=== PATIENT | female | born 1970 | race Caucasian/White ===

== ENCOUNTER 2017-04-16 06:21 | Inpatient (IN) | payer BC, OTHER ==
[2017-04-16] VITALS (7 sets, daily range): BP systolic 98–117; BP diastolic 56–70; PULSE 57–82; TEMP 36.3–36.8; O2SAT 91–100; Ht 162.6 cm; Wt 71.7 kg
[~2017-04-16] VITALS: Ht 162.6 cm; Wt 71.7 kg
--- NOTE | 2017-04-16 06:47 | EMERGENCY ROOM VISIT NOTE ---
History Report prepared by Artem: Debora Pavon Under the Supervision of: Dr. Darryl Duncan M.D. First contact with patient: 06:36 Chief Complaint: ABDOMINAL PAIN Stated Complaint: ABD PAIN History of Present Illness The patient is a 46 year old female who presents to the Emergency Room with complaints of waxing and waning abdominal pain that began around 0430 this morning. She currently rates her discomfort as a 9/10 in severity, describing her discomfort as a cramping pain. The patient reports that last evening she went to a picnic and ate salad, fruit, vegetables and bread. She additionally notes that she ate left over pizza last evening, but states that her significant other additionally ate the pizza. The patient states that last evening she developed a headache and took Advil and went to bed. She states that she woke up at 0430 with the pain and denies ever having any pain like this in the past. The patient states that she had vomited this morning. The patient states that her last bowel movement was yesterday, noting that it was diarrhea in consistency. She reports normal urination. The patient denies any active medical problems. The patient reports that she still has normal menstrual cycles, stating that she is currently on her period. Source of History: patient Onset: 0430 this morning Position: abdomen Symptom Intensity: 9/10 Quality: cramping Timing: waxes/wanes Associated Symptoms: + headache, + vomiting, + diarrhea, No urinary symptoms Review of Systems All systems have been listed, reviewed, and are negative other than those previously mentioned. Please see Additional Medical History Sheet. Past Medical & Surgical Surgical Problems: (1) H/O foot surgery Family History Patient reports no known family medical history. Social History Smoking Status: Never Smoker Marital Status: Housing Status: lives with significant other Occupation Status: employed Current/Historical Medications No Active Prescriptions or Reported Meds Allergies Coded Allergies: No Known Allergies (Verified , 12/22/02) Physical Exam Vital Signs Date Time Temp Pulse Resp B/P (MAP) Pulse Ox O2 Delivery O2 Flow Rate FiO2 04/16/17 14:57 59 18 100/54 97 04/16/17 14:17 91/42 04/16/17 14:14 51 18 86/45 100 Room Air 04/16/17 12:41 65 18 101/53 98 Room Air 04/16/17 11:35 59 18 118/59 98 Room Air 04/16/17 09:37 54 18 108/60 96 Room Air 04/16/17 07:39 57 18 104/59 100 Room Air 04/16/17 06:26 36.4 73 16 112/65 99 Room Air Physical Exam GENERAL: Patient awake, alert, oriented x 3. Patient follows commands. Patient appears to be in severe pain. Patient is adequately hydrated and well- nourished. SKIN: No erythema, pallor, cyanosis or rash HEENT: Normal head, pupils equal, reactive to light and accommodation. Neck: Without adenopathy, no neck vein distention. LUNGS: Clear to auscultation. No wheezes, no rales, no rhonchi. HEART: No murmurs. No gallops. No rubs ABDOMEN: Diffuse tenderness throughout abdomen. No rebound or guarding. EXTREMITIES: No signs of trauma or infection. NEUROLOGIC: Cranial nerves II-XII within normal limits. No gross motor sensory function deficits. Medical Decision & Procedures ER Provider Diagnostic Interpretation: CT results are interpretations by the radiologist and per my review. CT ABD/PELVIS IV AND ORAL CONT CLINICAL HISTORY: Mid abdominal pain and vomiting COMPARISON STUDY: None. TECHNIQUE: Following the IV administration of 118 mL of Optiray-320, CT scan of the abdomen and pelvis was performed from the lung bases to the proximal femurs. Images are reviewed in the axial, sagittal, and coronal planes. IV contrast was administered without complication. The patient was brought back for delayed imaging. CT DOSE: 0.00 mGy.cm FINDINGS: Lower chest: There are dependent airspace opacities, likely atelectatic Liver: There is a 4 mm hypodensity within the right hepatic dome, likely representing a cyst. Gallbladder: Unremarkable. Spleen: Normal in size and attenuation. Pancreas: Unremarkable. Adrenal glands: Unremarkable. Kidneys: There is symmetric renal cortical enhancement. The kidneys are normal in size without hydronephrosis. Bowel: There is a high-grade distal small bowel obstruction with a right lower quadrant transition zone. There is edema within the adjacent mesentery. A closed loop obstruction cannot be excluded with certainty. Surgical consultation is recommended. No pneumatosis is visualized. No portal venous gas is visualized. The appendix appears normal. There is no acute diverticulitis. Peritoneum: There is trace free pelvic fluid. No free air is visualized. Vasculature: The abdominal aorta is normal in course and caliber. Adenopathy: None. Pelvic viscera: The bladder, and pelvic viscera are unremarkable. Skeletal structures: No destructive osseous lesions are seen. IMPRESSION: 1. High-grade distal small bowel obstruction with a right lower quadrant transition. There is associated mesenteric edema. Surgical consultation is recommended. Electronically signed by: Donn Walters M.D. 04/16/2017 2:17 PM Dictated Date/Time: 04/16/2017 2:08 PM Laboratory Results 04/16/17 06:38 Red Blood Count 4.07, Mean Corpuscular Volume 99.0, Mean Corpuscular Hemoglobin 33.2, Mean Corpuscular Hemoglobin Concent 33.5, Mean Platelet Volume 10.7, Neutrophils (%) (Auto) 58.3, Lymphocytes (%) (Auto) 33.2, Monocytes (%) (Auto) 5.0, Eosinophils (%) (Auto) 3.0, Basophils (%) (Auto) 0.5, Neutrophils # (Auto) 2.36, Lymphocytes # (Auto) 1.34, Monocytes # (Auto) 0.20, Eosinophils # (Auto) 0.12, Basophils # (Auto) 0.02 04/16/17 06:38 Test 04/16/17 06:38 04/16/17 08:30 White Blood Count 4.04 K/uL (4.8-10.8) Red Blood Count 4.07 M/uL (4.2-5.4) Hemoglobin 13.5 g/dL (12.0-16.0) Hematocrit 40.3 % (37-47) Mean Corpuscular Volume 99.0 fL (80-100) Mean Corpuscular Hemoglobin 33.2 pg (25-34) Mean Corpuscular Hemoglobin Concent 33.5 g/dl (32-36) Platelet Count 212 K/uL (130-400) Mean Platelet Volume 10.7 fL (7.4-10.4) Neutrophils (%) (Auto) 58.3 % Lymphocytes (%) (Auto) 33.2 % Monocytes (%) (Auto) 5.0 % Eosinophils (%) (Auto) 3.0 % Basophils (%) (Auto) 0.5 % Neutrophils # (Auto) 2.36 K/uL (1.4-6.5) Lymphocytes # (Auto) 1.34 K/uL (1.2-3.4) Monocytes # (Auto) 0.20 K/uL (0.11-0.59) Eosinophils # (Auto) 0.12 K/uL (0-0.5) Basophils # (Auto) 0.02 K/uL (0-0.2) RDW Standard Deviation 45.6 fL (36.4-46.3) RDW Coefficient of Variation 12.6 % (11.5-14.5) Immature Granulocyte % (Auto) 0.0 % Immature Granulocyte # (Auto) 0.00 K/uL (0.00-0.02) Anion Gap 8.0 mmol/L (3-11) Est Creatinine Clear Calc Drug Dose 79.4 ml/min Estimated GFR () 93.9 Estimated GFR (Non- 81.0 BUN/Creatinine Ratio 16.8 (10-20) Calcium Level 8.4 mg/dl (8.5-10.1) Total Bilirubin 0.4 mg/dl (0.2-1) Aspartate Amino Transf (AST/SGOT) 11 U/L (15-37) Alanine Aminotransferase (ALT/SGPT) 16 U/L (12-78) Alkaline Phosphatase 55 U/L (45-117) Total Protein 7.1 gm/dl (6.4-8.2) Albumin 3.8 gm/dl (3.4-5.0) Globulin 3.3 gm/dl (2.5-4.0) Albumin/Globulin Ratio 1.2 (0.9-2) Lipase 162 U/L (73-393) Urine Color YELLOW Urine Appearance CLEAR (CLEAR) Urine pH 5.5 (4.5-7.5) Urine Specific [place] 1.023 (1.000-1.030) Urine Protein NEG (NEG) Urine Glucose (UA) NEG (NEG) Urine Ketones NEG (NEG) Urine Occult Blood NEG (NEG) Urine Nitrite NEG (NEG) Urine Bilirubin NEG (NEG) Urine Urobilinogen NEG (NEG) Urine Leukocyte Esterase NEG (NEG) Urine Test NEG (NEG) Laboratory results as stated above per my review. Medications Administered Medications (Trade) Dose Ordered Sig/Elizabeth Route Start Time Stop Time Status Last Admin Dose Admin Morphine Sulfate (MoRPHine SULFATE INJ) 8 mg Q1H PRN IV 04/16/17 06:45 04/30/17 06:44 04/16/17 14:57 8 MG Ondansetron HCl (Zofran Inj) 4 mg Q1HWA PRN IV 04/16/17 06:45 05/16/17 06:44 04/16/17 13:53 4 MG Sodium Chloride 1,000 ml @ 1,000 mls/hr Q1H ONCE IV 04/16/17 13:00 04/16/17 13:59 DC 04/16/17 13:05 1,000 MLS/HR Sodium Chloride 1,000 ml @ 500 mls/hr Q2H STAT IV 04/16/17 14:33 04/16/17 16:32 04/16/17 15:00 500 MLS/HR ECG Indication: abdominal pain Rate (beats per minute): 67 Rhythm: normal sinus Findings: no acute ischemic change, no ectopy ED Course 0637: Past medical records reviewed. The patient was evaluated in room A10. A complete history and physical examination was performed. 0645: Ordered Zofran Inj 4 mg IV, Morphine Sulfate 8 mg IV. 0840: I reevaluated the patient and she is feeling much better. 1255: I reevaluated the patient and awaiting her CT results. 1300: Ordered Sodium Chloride 1000 ml @ 1000 mls/hr IV. 1428: I reevaluated the patient and she is resting comfortably. I discussed the exam findings with her and I discussed the treatment plan. She verbalized complete understanding and agreement. She will be evaluated for further treatment. 1433: Ordered Sodium Chloride 1000 ml @ 500 mls/hr IV. 1434: I discussed the patients case with Dr. Flaherty, General Surgery. He would like an NG tube placed and he will come evaluate the patient. Medical Decision Nurses notes reviewed. Medical history sheet reviewed. Differential diagnosis includes but is not limited to: appendicitis, Crohn's disease, diverticulitis, abdominal abscess, ovarian torsion, ovarian cyst. Medication Reconciliation: I attest that I have personally reviewed the patient' s current medication list. Blood pressure Screening: Patient was found to have normal blood pressure on screening and does not require follow up. Multiple labs, urinalysis, EKG and imaging were obtained. Final CT imaging diagnosis was delayed due to multiple follow-up CT films that were requested by radiology. High-grade small bowel obstruction was found. I discussed care with the patient. I also discussed care with Dr. Flaherty. An NG was inserted.. The patient was given IV fluids and multiple doses of IV morphine and Zofran. Consults Time Called: 1431 Consulting Physician: Dr. Flaherty, General Surgery Returned Call: 1431 I discussed the patients case with Dr. Flaherty, General Surgery. He would like an NG tube placed and he will come evaluate the patient. Impression Primary Impression: Small bowel obstruction Scribe Attestation The scribe's documentation has been prepared under my direction and personally reviewed by me in its entirety. I confirm that the note above accurately reflects all work, treatment, procedures, and medical decision making performed by me. Departure Information Dispostion Being Evaluated By Surgeon Prescriptions No Active Prescriptions or Reported Meds Referrals Ousmane Fish M.D.([facility]) (PCP)
[2017-04-16 06:50] LABS: BASO % 0.5 %; BASO ABS # 0.02 K/uL (0-0.2); COMPLETE YES; HEMATOCRIT 40.3 % (37-47); LYMPH % 33.2 %; LYMPH ABS # 1.34 K/uL (1.2-3.4); MEAN CORPUSCULAR HEMOGLOBIN 33.2 pg (25-34); MEAN CORPUSCULAR HGB CONC 33.5 g/dl (32-36); MEAN PLATELET VOLUME 10.7 fL (7.4-10.4); NEUT % 58.3 %; PLATELET COUNT 212 K/uL (130-400); RED BLOOD COUNT 4.07 M/uL (4.2-5.4); WHITE BLOOD COUNT 4.04 K/uL (4.8-10.8)
[2017-04-16] MEDS: MoRPHine SULFATE 10 MG/ML CARP/VIAL IV PRN ×4 (06:50→14:57)
[2017-04-16] MEDS: ONDANSETRON INJ 2 MG/ML 2 ML VIAL IV PRN ×3 (06:50→13:53)
[2017-04-16] MEDS ORDERED: OPTIRAY 320 IV PRN (07:00)
[2017-04-16 07:06] LABS: BUN/CREATININE RATIO 16.8 (10-20); CALCIUM 8.4 mg/dl (8.5-10.1); CREATININE 0.86 mg/dl (0.60-1.20); POTASSIUM 3.7 mmol/L (3.5-5.1)
[2017-04-16 07:09] LABS: ALB/GLOB RATIO 1.2 (0.9-2)
[2017-04-16 08:51] LABS: URINE APPEARANCE CLEAR (CLEAR); URINE BILIRUBIN NEG (NEG); URINE COLOR YELLOW; URINE NITRITE NEG (NEG); URINE PH 5.5 (4.5-7.5); URINE SPECIFIC GRAVITY 1.023 (1.000-1.030); UROBILINOGEN NEG (NEG); ZZUR CULT IF INDIC CLEAN CATCH NO
[2017-04-16 09:12] LABS: MANUAL MICROSCOPIC REQUIRED? NO; REVIEW REQ? NO
[2017-04-16] MEDS ORDERED: SODIUM CHLORIDE 0.9% 1000ML 1,000 ML IV ONE (13:00)
--- NOTE | 2017-04-16 14:18 | DIAGNOSTIC IMAGING REPORT ---
CT ABD/PELVIS IV AND ORAL CONT CLINICAL HISTORY: Mid abdominal pain and vomiting COMPARISON STUDY: None. TECHNIQUE: Following the IV administration of 118 mL of Optiray-320, CT scan of the abdomen and pelvis was performed from the lung bases to the proximal femurs. Images are reviewed in the axial, sagittal, and coronal planes. IV contrast was administered without complication. The patient was brought back for delayed imaging. CT DOSE: 0.00 mGy.cm FINDINGS: Lower chest: There are dependent airspace opacities, likely atelectatic Liver: There is a 4 mm hypodensity within the right hepatic dome, likely representing a cyst. Gallbladder: Unremarkable. Spleen: Normal in size and attenuation. Pancreas: Unremarkable. Adrenal glands: Unremarkable. Kidneys: There is symmetric renal cortical enhancement. The kidneys are normal in size without hydronephrosis. Bowel: There is a high-grade distal small bowel obstruction with a right lower quadrant transition zone. There is edema within the adjacent mesentery. A closed loop obstruction cannot be excluded with certainty. Surgical consultation is recommended. No pneumatosis is visualized. No portal venous gas is visualized. The appendix appears normal. There is no acute diverticulitis. Peritoneum: There is trace free pelvic fluid. No free air is visualized. Vasculature: The abdominal aorta is normal in course and caliber. Adenopathy: None. Pelvic viscera: The bladder, and pelvic viscera are unremarkable. Skeletal structures: No destructive osseous lesions are seen. IMPRESSION: 1. High-grade distal small bowel obstruction with a right lower quadrant transition. There is associated mesenteric edema. Surgical consultation is recommended. Electronically signed by: Donn Walters M.D. 04/16/2017 2:17 PM Dictated Date/Time: 04/16/2017 2:08 PM
[2017-04-16] MEDS ORDERED: SODIUM CHLORIDE 0.9% 1000ML 1,000 ML IV STA (14:33)
[2017-04-16] MEDS ORDERED: CEFAZOLIN IV 2,000 MG/60 ML D5W IV ONE ×2 (15:45→16:00)
--- NOTE | 2017-04-16 15:50 | History and Physical: Surg Cnt ---
History & Physical Date Apr 16, 2017. (Liliya Cordon .JEAN-PAUL) Chief Complaint Abdominal pain (Liliya Cordon PA-C) History of Present Illness Luisa is a 46 year-old female who presented to emergency department this morning with complaint of diffuse abdominal pain that began around 430 this morning. States the pain woke her up. States she has never had this type of pain before. Went to a picnic last evening and then had left over [employer] . Her also had left over pizza. She did notice some diarrhea with her last bowel movement 2 days ago. States the pain was severe in nature and presented to the hospital right away. Had associated nausea, but no vomiting. No fevers or chills. NO previous abdominal surgeries. No past medical history. Has had surgery on her foot previously otherwise healthy. CT scan of the abdomen and pelvis with contrast showed high grade small bowel obstruction with transition point in the right lower quadrant with edema of the surrounding mesentery. Surgical consultation was advised. Labs showed no leukocytosis. BP has been low. She received 1 liter of NS in the ER. (Liliya Cordon PA-C) Past Medical/Surgical History Surgical Problems: (1) H/O foot surgery (Liliya Cordon PA-C) Allergies Coded Allergies: No Known Allergies (Verified , 12/22/02) Home Medications No Active Prescriptions or Reported Meds Physical Examination Skin: warm/dry, no rash Eyes: sclerae normal Head: normocephalic, atraumatic Neck: trachea midline Respiratory/Chest: lungs clear, normal breath sounds, no respiratory distress Cardiovascular: regular rate, rhythm, no murmur Abdomen / GI: + pertinent finding (Abdominal pain , no distention, no rigidity , there is guarding of the abdomen.) Back: normal inspection Extremities: normal inspection Neurologic/Psych: alert, oriented x 3 (Liliya Cordon PA-C) Diagnosis CT ABD/PELVIS IV AND ORAL CONT CLINICAL HISTORY: Mid abdominal pain and vomiting COMPARISON STUDY: None. TECHNIQUE: Following the IV administration of 118 mL of Optiray-320, CT scan of the abdomen and pelvis was performed from the lung bases to the proximal femurs. Images are reviewed in the axial, sagittal, and coronal planes. IV contrast was administered without complication. The patient was brought back for delayed imaging. CT DOSE: 0.00 mGy.cm FINDINGS: Lower chest: There are dependent airspace opacities, likely atelectatic Liver: There is a 4 mm hypodensity within the right hepatic dome, likely representing a cyst. Gallbladder: Unremarkable. Spleen: Normal in size and attenuation. Pancreas: Unremarkable. Adrenal glands: Unremarkable. Kidneys: There is symmetric renal cortical enhancement. The kidneys are normal in size without hydronephrosis. Bowel: There is a high-grade distal small bowel obstruction with a right lower quadrant transition zone. There is edema within the adjacent mesentery. A closed loop obstruction cannot be excluded with certainty. Surgical consultation is recommended. No pneumatosis is visualized. No portal venous gas is visualized. The appendix appears normal. There is no acute diverticulitis. Peritoneum: There is trace free pelvic fluid. No free air is visualized. Vasculature: The abdominal aorta is normal in course and caliber. Adenopathy: None. Pelvic viscera: The bladder, and pelvic viscera are unremarkable. Skeletal structures: No destructive osseous lesions are seen. Impression: 1. High-grade distal small bowel obstruction with a right lower quadrant transition. There is associated mesenteric edema. Surgical consultation is recommended. Diagnosis: High grade small bowel obstruction - hypotensive - no leukocytosis - afebrile - CT scan showing high grade obstruction with mesenteric edema, closed loop obstruction cannot be excluded (Liliya Cordon ., BRYC) ASA Classification: ASA Class II (Izzy Flaherty MD) Plan of Treatment Plan to take patient to operating room for exploratory laparotomy possible bowel resection possible ostomy Patient and her friend were informed of procedure and risks including bleeding, infection, injury to surrounding organs/tissue, [place], blood clots, and . Patient understood and informed consent obtained She will get 2 gms Ancef IV pre-operatively She will be admitted post operatively for a few days depending on OR findings. Dr. Flaherty has seen and examined patient, agrees with above. (Liliya Cordon PA-C)
[2017-04-16] MEDS ORDERED: LIDOCAINE HCL 1% 20 ML VIAL ONE (15:55)
[2017-04-16] MEDS ORDERED: BUPIVACAINE 0.5 % 5 MG/1 ML MPF 30ML VIAL ONE (15:55)
[2017-04-16] MEDS ORDERED: HYDROmorphone INJ 1 MG/ML SYR IV PRN ×3 (16:00→16:15)
[2017-04-16] MEDS ORDERED: ONDANSETRON INJ 2 MG/ML 2 ML VIAL IV PRN ×2 (16:00→16:15)
[2017-04-16] MEDS ORDERED: ACETAMINOPHEN 650 MG SUPP PR PRN (16:00)
[2017-04-16] MEDS ORDERED: SUCCINYLCHOLINE CHLORIDE 20 MG/ML 10 ML VIAL IV ONE (16:04)
[2017-04-16] MEDS ORDERED: LIDOCAINE HCL 2% 2 ML VIAL (20MG/ML) ONE (16:04)
[2017-04-16] MEDS ORDERED: MIDAZOLAM HCL 1 MG/ML 2ML VIAL ONE (16:04)
[2017-04-16] MEDS ORDERED: PROPOFOL IV EMULSION 10 MG/ML 20 ML VIAL IV ONE (16:04)
[2017-04-16] MEDS ORDERED: ROCURONIUM BROMIDE 10 MG/ML 5 ML VIAL ONE (16:04)
[2017-04-16] MEDS ORDERED: FENTANYL CITRATE INJ 50 MCG/1 ML 2 ML VIAL ONE (16:04)
--- NOTE | 2017-04-16 16:10 | History & Physical Bridge Note ---
H&P Re-Evaluation Bridge Note: I have examined the patient, reviewed the History & Physical and in the interval since the performance of the History & Physical I have noted the following changes of clinical significance: No changes noted
[2017-04-16] MEDS ORDERED: EpHEDrine SULFATE INJ 50 MG/ML AMP IV PRN (16:15)
[2017-04-16] MEDS ORDERED: ATROPINE SULFATE 0.1 MG/ML 5ML SYR IV PRN (16:15)
[2017-04-16] MEDS ORDERED: LABETALOL HCL IV 5 MG/ML 20ML IV PRN (16:15)
[2017-04-16] MEDS ORDERED: MEPERIDINE HCL 25 MG/ML CARP IV PRN (16:15)
[2017-04-16] MEDS ORDERED: DEXAMETHASONE SOD INJ 4 MG/ML VIAL ONE (17:01)
[2017-04-16] MEDS ORDERED: ONDANSETRON INJ 2 MG/ML 2 ML VIAL ONE (17:01)
[2017-04-16] MEDS ORDERED: GLYCOPYRROLATE INJ 0.2 MG/ML VIAL ONE ×2 (17:01→17:07)
[2017-04-16] MEDS ORDERED: NEOSTIGMINE METHYLSULFATE 5 MG/5 ML SYR ONE (17:01)
--- NOTE | 2017-04-16 17:13 | [facility] Post Operative Brief Note ---
Immediate Operative Summary Operative Date Apr 16, 2017. Pre-Operative Diagnosis Closed loop bowel obstruction Post-Operative Diagnosis Same as preoperative diagnosis Procedure(s) Performed Exploratory Laparotomy, Lysis of Adhesion Surgeon Dr. Flaherty Automobile Tester Surgeon(s) Rainer MARTIN Estimated Blood Loss 10ml Findings one band found, which caused small bowel obstruction, edema on priximal small bowel wall, Fluids (cc crystalloids) 1000ml Specimens none Drains none Anesthesia general Complication(s) None Disposition Recovery Room / PACU
[2017-04-16] MEDS: FENTANYL CITRATE INJ 50 MCG/1 ML 2 ML VIAL IV PRN ×2 (17:37→17:42)
--- NOTE | 2017-04-16 18:01 | Anesthesiology Progress Note ---
Anesthesia Post Op Note Date & Time Apr 16, 2017 at 18:00 Vital Signs Pain Intensity: 3 Vital Signs Past 12 Hours Date Time Temp Pulse Resp B/P (MAP) Pulse Ox O2 Delivery O2 Flow Rate FiO2 04/16/17 17:50 62 16 119/58 100 Nasal Cannula 2 04/16/17 17:40 53 16 117/66 100 Mask 10 04/16/17 17:30 60 16 124/70 100 Mask 10 04/16/17 17:24 36.8 71 16 120/64 100 Mask 10 04/16/17 15:40 67 18 98/56 91 04/16/17 14:57 59 18 100/54 97 04/16/17 14:17 91/42 04/16/17 14:14 51 18 86/45 100 Room Air 04/16/17 12:41 65 18 101/53 98 Room Air 04/16/17 11:35 59 18 118/59 98 Room Air 04/16/17 09:37 54 18 108/60 96 Room Air 04/16/17 07:39 57 18 104/59 100 Room Air 04/16/17 06:26 36.4 73 16 112/65 99 Room Air Notes Mental Status: alert / awake / arousable, participated in evaluation Pt Amnestic to Procedure: Yes Nausea / Vomiting: adequately controlled Pain: adequately controlled Airway Patency, RR, SpO2: stable & adequate BP & HR: stable & adequate Hydration State: stable & adequate Anesthetic Complications: no major complications apparent
[2017-04-16] MEDS: D5W AND 1/2NSS + 20MEQ KCL 1,000 ML IV SCH (19:59)
[2017-04-16] MEDS: PANTOprazole INJ 40 MG in SYRINGE 0 ML IV SCH (20:48)
--- NOTE | 2017-04-16 21:32 | Surgery Progress Note ---
Surgery Progress Note Date of Service Apr 16, 2017. Subjective + feeling well F/U S/P exp lap, lysis of adhesion for small bowel obstruction, pt is doing better, good control abdominal pain, no nausea, no vomiting, Objective Vital Signs: Date Time Temp Pulse Resp B/P (MAP) Pulse Ox O2 Delivery O2 Flow Rate FiO2 04/16/17 21:08 63 16 98/59 (72) 97 Room Air 04/16/17 20:20 36.3 71 15 117/70 (86) 97 04/16/17 19:18 57 16 103/64 (77) 97 2.0 04/16/17 18:50 36.8 60 16 103/65 (78) 100 04/16/17 18:20 Nasal Cannula 2.0 04/16/17 18:20 Nasal Cannula 2.0 04/16/17 18:20 36.7 69 20 106/61 (76) 99 Nasal Cannula 2.0 04/16/17 18:00 36.8 62 16 102/60 100 Nasal Cannula 2 04/16/17 17:50 62 16 119/58 100 Nasal Cannula 2 04/16/17 17:40 53 16 117/66 100 Mask 10 04/16/17 17:30 60 16 124/70 100 Mask 10 04/16/17 17:24 36.8 71 16 120/64 100 Mask 10 04/16/17 15:40 67 18 98/56 91 04/16/17 14:57 59 18 100/54 97 04/16/17 14:17 91/42 04/16/17 14:14 51 18 86/45 100 Room Air 04/16/17 12:41 65 18 101/53 98 Room Air 04/16/17 11:35 59 18 118/59 98 Room Air 04/16/17 09:37 54 18 108/60 96 Room Air 04/16/17 07:39 57 18 104/59 100 Room Air 04/16/17 06:26 36.4 73 16 112/65 99 Room Air General Appearance: WD/WN, no apparent distress Head: normocephalic Neck: supple, no JVD Respiratory/Chest: chest non-tender, lungs clear Cardiovascular: regular rate, rhythm, no edema, no gallop, no JVD Abdomen: normal bowel sounds, non distended, soft, + tenderness Incision(s): clean, dry, intact Extremities: normal range of motion, non-tender, normal inspection Laboratory Results: Results Past 24 Hours Test 04/16/17 06:38 04/16/17 08:30 Range/Units White Blood Count 4.04 4.8-10.8 K/uL Red Blood Count 4.07 4.2-5.4 M/uL Hemoglobin 13.5 12.0-16.0 g/dL Hematocrit 40.3 37-47 % Mean Corpuscular Volume 99.0 80-100 fL Mean Corpuscular Hemoglobin 33.2 25-34 pg Mean Corpuscular Hemoglobin Concent 33.5 32-36 g/dl Platelet Count 212 130-400 K/uL Mean Platelet Volume 10.7 7.4-10.4 fL Neutrophils (%) (Auto) 58.3 % Lymphocytes (%) (Auto) 33.2 % Monocytes (%) (Auto) 5.0 % Eosinophils (%) (Auto) 3.0 % Basophils (%) (Auto) 0.5 % Neutrophils # (Auto) 2.36 1.4-6.5 K/uL Lymphocytes # (Auto) 1.34 1.2-3.4 K/uL Monocytes # (Auto) 0.20 0.11-0.59 K/uL Eosinophils # (Auto) 0.12 0-0.5 K/uL Basophils # (Auto) 0.02 0-0.2 K/uL RDW Standard Deviation 45.6 36.4-46.3 fL RDW Coefficient of Variation 12.6 11.5-14.5 % Immature Granulocyte % (Auto) 0.0 % Immature Granulocyte # (Auto) 0.00 0.00-0.02 K/uL Sodium Level 143 136-145 mmol/L Potassium Level 3.7 3.5-5.1 mmol/L Chloride Level 110 98-107 mmol/L Carbon Dioxide Level 25 21-32 mmol/L Anion Gap 8.0 3-11 mmol/L Blood Urea Nitrogen 14 7-18 mg/dl Creatinine 0.86 0.60-1.20 mg/dl Est Creatinine Clear Calc Drug Dose 79.4 ml/min Estimated GFR () 93.9 Estimated GFR (Non- 81.0 BUN/Creatinine Ratio 16.8 10-20 Random Glucose 101 70-99 mg/dl Calcium Level 8.4 8.5-10.1 mg/dl Total Bilirubin 0.4 0.2-1 mg/dl Aspartate Amino Transf (AST/SGOT) 11 15-37 U/L Alanine Aminotransferase (ALT/SGPT) 16 12-78 U/L Alkaline Phosphatase 55 45-117 U/L Total Protein 7.1 6.4-8.2 gm/dl Albumin 3.8 3.4-5.0 gm/dl Globulin 3.3 2.5-4.0 gm/dl Albumin/Globulin Ratio 1.2 0.9-2 Lipase 162 73-393 U/L Urine Color YELLOW Urine Appearance CLEAR CLEAR Urine pH 5.5 4.5-7.5 Urine Specific [place] 1.023 1.000-1.030 Urine Protein NEG NEG Urine Glucose (UA) NEG NEG Urine Ketones NEG NEG Urine Occult Blood NEG NEG Urine Nitrite NEG NEG Urine Bilirubin NEG NEG Urine Urobilinogen NEG NEG Urine Leukocyte Esterase NEG NEG Urine Test NEG NEG Assessment & Plan IMP: S/P exp lap, lysis of adhesion, pt is doing better, I update information about OR finding and the procedure she had, she understood, I answered all questions, continue treatment, will F/U
--- NOTE | 2017-04-16 22:31 | OPERATIVE REPORT ---
DATE OF OPERATION: 04/16/2017 PREOPERATIVE DIAGNOSIS: Loop small bowel obstruction. POSTOPERATIVE DIAGNOSIS: Same. OPERATION: Exploratory laparotomy, lysis of adhesions. SURGEON: Dr. Izzy Flaherty. IT ANALYST: Liliya Cordon PA-C ANESTHESIA: General. ESTIMATED BLOOD LOSS: About 10 mL IV FLUIDS: 1000 mL FINDINGS: One band found, which causes the small bowel obstruction. Once the band was released, the distal bowel is really opened and also the patient has a proximal bowel small bowel wall edema, a small amount. COMPLICATIONS: None. INDICATIONS FOR THE PROCEDURE: This is a 46-year-old female, who presented to the ED with 10 hours of sudden abdominal pain and the patient had a CT scan diagnosis of possible loop small bowel obstruction and we decided to take the patient to the OR and do exploratory laparotomy, possible bowel resection and possible stomal. I did talk to the patient about the benefit and risk, alternate procedure. I indicated the risks may include, but not limited, such as bleeding, infection, incisional hernia, myocardial infarction, DVT, even and injury to bowel. The patient understands. She signed informed consent and I answered all questions and she agreed to proceed with the procedure. DETAILS OF PROCEDURE: We brought the patient to the OR, put the patient in the supine position. The patient received SCDs on bilateral legs to prevent DVT. Also, the patient received 2 grams Ancef IV for prophylactic antibiotic. The patient received general anesthesia without difficulty. The patient received a Shelby catheter and the abdomen was prepped and draped in routine sterile fashion. After time out, I made a small midline incision, about 8 cm below the umbilicus, opened the fascia and opened peritoneum under direct vision. Once we got into the abdomen, found the patient had a significant dilated small bowel and small bowel wall edema. Then, we followed the small bowel until we found there was one band that caused the small bowel obstruction. Once we released the band, the small bowel was opened from the Treitz ligament, the small bowel follow to the terminal ileum, cecum and no small bowel mass or tumor found. Once we released the band again and the small bowel was opened. There was some gas going towards the large bowel. We did a basic exam of the abdomen inside and no large tumors found and hemostasis obtained. Then, we closed the abdomen fascial layer by using #1 PDS continuous running, closed subcutaneous layer by using 2-0 Vicryl, closed skin by using staple. The patient tolerated the procedure well and we put the dressing on. We injected local anesthesia by using 1% lidocaine mixed with 0.5% Marcaine around the incision. We put the dressing on. The patient tolerated the procedure well. All instrument, needle and sponge counts were correct x2 and at the end of case, the patient transferred to recovery room in stable condition. After the procedure, I did talk to the patient and family member about the OR finding and procedure we did. They understand. I attest to the content of the Intraoperative Record and any orders documented therein. Any exceptions are noted below. MTDD
[2017-04-17] MEDS: CEFAZOLIN IV 1,000 MG in DEXTROSE 5% 50ML 50 ML IV SCH ×3 (00:22→15:39)
[2017-04-17 03:50] VITALS: BP 94/55; PULSE 66; TEMP 37; O2SAT 100
[2017-04-17] MEDS: D5W AND 1/2NSS + 20MEQ KCL 1,000 ML IV SCH ×2 (05:33→15:33)
[2017-04-17 07:10] VITALS: BP 93/53; PULSE 62; TEMP 37.1; O2SAT 97
[2017-04-17 07:20] LABS: COMPLETE YES; EOS % 0.1 %; HEMATOCRIT 38.9 % (37-47); IG% 0.3 %; LYMPH % 12.9 %; LYMPH ABS # 1.37 K/uL (1.2-3.4); MEAN CELL VOLUME 99.2 fL (80-100); MEAN CORPUSCULAR HEMOGLOBIN 32.1 pg (25-34); MEAN CORPUSCULAR HGB CONC 32.4 g/dl (32-36); MEAN PLATELET VOLUME 10.7 fL (7.4-10.4); NEUT % 79.7 %; PLATELET COUNT 206 K/uL (130-400); RED BLOOD COUNT 3.92 M/uL (4.2-5.4); WHITE BLOOD COUNT 10.65 K/uL (4.8-10.8)
[2017-04-17 08:00] LABS: BUN/CREATININE RATIO 9.4 (10-20); CALCIUM 8.1 mg/dl (8.5-10.1); CREATININE 0.71 mg/dl (0.60-1.20)
[2017-04-17] MEDS: PANTOprazole INJ 40 MG in SYRINGE 0 ML IV SCH ×2 (08:06→21:04)
--- NOTE | 2017-04-17 13:21 | Surgery Progress Note ---
Surgery Progress Note Date of Service Apr 17, 2017. Subjective Post OP Day: 1 + feeling well, + complaints (NGT is rearly bothersome and uncomfortable), + ambulating, + pain controlled (has not had any pain medicaiton since surgery), No chest pain, No SOB, No bowel movement, No flatus, No nausea, No vomiting Objective Vital Signs: Date Time Temp Pulse Resp B/P (MAP) Pulse Ox O2 Delivery O2 Flow Rate FiO2 04/17/17 08:00 Room Air 04/17/17 07:10 37.1 62 17 93/53 (66) 97 Room Air 04/17/17 03:50 37.0 66 16 94/55 (68) 100 Nasal Cannula 2.0 04/16/17 23:08 Room Air 04/16/17 23:03 36.7 82 12 98/56 (70) 97 Nasal Cannula 2.0 04/16/17 21:08 63 16 98/59 (72) 97 Room Air 04/16/17 20:20 36.3 71 15 117/70 (86) 97 04/16/17 19:18 57 16 103/64 (77) 97 2.0 04/16/17 18:50 36.8 60 16 103/65 (78) 100 04/16/17 18:20 Nasal Cannula 2.0 04/16/17 18:20 Nasal Cannula 2.0 04/16/17 18:20 36.7 69 20 106/61 (76) 99 Nasal Cannula 2.0 04/16/17 18:00 36.8 62 16 102/60 100 Nasal Cannula 2 04/16/17 17:50 62 16 119/58 100 Nasal Cannula 2 04/16/17 17:40 53 16 117/66 100 Mask 10 04/16/17 17:30 60 16 124/70 100 Mask 10 04/16/17 17:24 36.8 71 16 120/64 100 Mask 10 04/16/17 15:40 67 18 98/56 91 04/16/17 14:57 59 18 100/54 97 04/16/17 14:17 91/42 04/16/17 14:14 51 18 86/45 100 Room Air Physical Exam: nasogastric drainage (little output, bilious) General Appearance: WD/WN, no apparent distress Head: normocephalic, atraumatic Neck: trachea midline Respiratory/Chest: no respiratory distress, no accessory muscle use Abdomen: non distended, soft, + tenderness (appropriate post op at inision site ) Incision(s): clean, dry (dressing, incision not evaluate pod #1) Laboratory Results: Results Past 24 Hours Test 04/17/17 07:05 Range/Units White Blood Count 10.65 4.8-10.8 K/uL Red Blood Count 3.92 4.2-5.4 M/uL Hemoglobin 12.6 12.0-16.0 g/dL Hematocrit 38.9 37-47 % Mean Corpuscular Volume 99.2 80-100 fL Mean Corpuscular Hemoglobin 32.1 25-34 pg Mean Corpuscular Hemoglobin Concent 32.4 32-36 g/dl Platelet Count 206 130-400 K/uL Mean Platelet Volume 10.7 7.4-10.4 fL Neutrophils (%) (Auto) 79.7 % Lymphocytes (%) (Auto) 12.9 % Monocytes (%) (Auto) 7.0 % Eosinophils (%) (Auto) 0.1 % Basophils (%) (Auto) 0.0 % Neutrophils # (Auto) 8.49 1.4-6.5 K/uL Lymphocytes # (Auto) 1.37 1.2-3.4 K/uL Monocytes # (Auto) 0.75 0.11-0.59 K/uL Eosinophils # (Auto) 0.01 0-0.5 K/uL Basophils # (Auto) 0.00 0-0.2 K/uL RDW Standard Deviation 45.4 36.4-46.3 fL RDW Coefficient of Variation 12.5 11.5-14.5 % Immature Granulocyte % (Auto) 0.3 % Immature Granulocyte # (Auto) 0.03 0.00-0.02 K/uL Sodium Level 140 136-145 mmol/L Potassium Level 4.0 3.5-5.1 mmol/L Chloride Level 106 98-107 mmol/L Carbon Dioxide Level 27 21-32 mmol/L Anion Gap 7.0 3-11 mmol/L Blood Urea Nitrogen 7 7-18 mg/dl Creatinine 0.71 0.60-1.20 mg/dl Est Creatinine Clear Calc Drug Dose 96.2 ml/min Estimated GFR () 118.4 Estimated GFR (Non- 102.1 BUN/Creatinine Ratio 9.4 10-20 Random Glucose 127 70-99 mg/dl Calcium Level 8.1 8.5-10.1 mg/dl Total Bilirubin 0.8 0.2-1 mg/dl Aspartate Amino Transf (AST/SGOT) 8 15-37 U/L Alanine Aminotransferase (ALT/SGPT) 14 12-78 U/L Alkaline Phosphatase 47 45-117 U/L Total Protein 6.1 6.4-8.2 gm/dl Albumin 3.1 3.4-5.0 gm/dl Globulin 3.0 2.5-4.0 gm/dl Albumin/Globulin Ratio 1.0 0.9-2 Assessment & Plan POD # 1 s/p exploratory laparotomy, lysis of adhesive band - vitals stable other than some hypotensive - No leukocytosis - minimal NGT output - minimal pain, soreness at incision site - no nausea or vomiting - no return of bowel function Plan: DC NGT Starts ice chips and small sips encourage ambulation and OOB to chair continue current pain management as needed will place order for clear liquids if passing flatus Possible dc later this weekend if bowel function returns Dr. Flaherty has seen and examined patient, agrees with above
[2017-04-17] MEDS ORDERED: OXYC-57 PO (13:24)
--- NOTE | 2017-04-17 13:28 | Discharge Instructions ---
Discharge Instructions Date of Service Apr 17, 2017. Admission Reason for Admission: Small Bowel Obstruction Discharge Discharge Diagnosis / Problem: Small bowel obstruction Discharge Goals Goal(s): Decrease discomfort Activity Recommendations Activity Limitations: as noted below NO heavy lifting over 10 pounds for 6 weeks NO strenuous activity until cleared by surgeon light activity and walking is encouraged no driving while taking narcotic pain medication . Instructions / Follow-Up Instructions / Follow-Up You may shower, no submerging incision underwater for 2 weeks or until cleared to do so by surgeon You will have phoenix removed in office Follow-up with Dr. Flaherty 1 week following your discharge from hospital. Please call office at [phone] to make an appointment. Our office is located on 2nd floor of [facility]. You will be off work until your follow-up with Dr. Flaherty. Please bring any necessary paperwork for work with you at your follow-up appointment. Current Hospital Diet Patient's current hospital diet: Discharge Diet Recommended Diet: Low Fiber Diet Procedures Procedures Performed: Exploratory Laparotomy, Lysis of Adhesion Pending Studies Studies pending at discharge: no Medical Emergencies . Who to Call and When: Medical Emergencies: If at any time you feel your situation is an emergency, please call 911 immediately. . Non-Emergent Contact Non-Emergency issues call your: Primary Care Provider, Surgeon Call Non-Emergent contact if: you have a fever, temperature is above 100.5, your pain is not controlled, your pain is worsening, wound has increased drainage, wound has increased redness, wound has increased pain . "Provider Documentation" section prepared by Liliya Cordon. . VTE Core Measure Inpt VTE Proph given/why not?: SCD's [place] Drug Monitoring Program Search Results: patient reviewed within database, no issues identified
[2017-04-17 15:34] VITALS: BP 103/62; PULSE 70; TEMP 37.1; O2SAT 99
[2017-04-17] MEDS ORDERED: NURSING VERBAL MED ORDER ONE (16:00)
[2017-04-17] MEDS: ACETAMINOPHEN IV 1000MG/100ML IV PRN (17:10)
[2017-04-17 22:54] VITALS: BP 113/75; PULSE 61; TEMP 36.9; O2SAT 95
[2017-04-18] MEDS: D5W AND 1/2NSS + 20MEQ KCL 1,000 ML IV SCH (01:31)
[2017-04-18 06:35] LABS: HEMATOCRIT 37.1 % (37-47); MEAN CELL VOLUME 98.7 fL (80-100); MEAN CORPUSCULAR HEMOGLOBIN 30.9 pg (25-34); MEAN CORPUSCULAR HGB CONC 31.3 g/dl (32-36); MEAN PLATELET VOLUME 10.8 fL (7.4-10.4); PLATELET COUNT 196 K/uL (130-400); RED BLOOD COUNT 3.76 M/uL (4.2-5.4); WHITE BLOOD COUNT 4.69 K/uL (4.8-10.8)
[2017-04-18 07:21] VITALS: BP 104/63; PULSE 61; TEMP 36.9; O2SAT 99
[2017-04-18] MEDS: ACETAMINOPHEN IV 1000MG/100ML IV PRN (08:02)
[2017-04-18] MEDS ORDERED: OXYCODONE/ACETAMINOPHEN 5-325 TAB PO PRN (09:00)
--- NOTE | 2017-04-18 09:03 | SURGERY PROGRESS NOTE ---
DATE: 04/18/2017 DATE: 04/18/2017. Covering for Dr. Flaherty. Luisa is resting comfortably. She is 48 hours postop exploratory lap, lysis of adhesive band. She had some questions about her surgery that wasn't sure after talking with Dr. Flaherty. I tried looking at the operative report and explained to her what went on intraoperatively. Her last vitals showed a temperature of 36.9, pulse 61, respirations 19, blood pressure 104/63. O2 sat is 99 on room air. Her I&O she had 1150 of urine overnight. Her abdomen is soft. I took the dressing off. The incision is free of any drainage or any cellulitis. The patient was just started on some liquids yesterday. At this point we will discontinue her IV fluids, give her some p.o. medicines and hopefully she will be able to go most likely by tomorrow.
[2017-04-18] MEDS: PANTOprazole INJ 40 MG in SYRINGE 0 ML IV SCH (09:09)
[2017-04-18 15:17] VITALS: BP 102/63; PULSE 56; TEMP 36.6; O2SAT 96
[2017-04-18] MEDS ORDERED: NURSING DECISION MEDICATION ORDER SCH (15:45)
[2017-04-18] MEDS ORDERED: NURSING VERBAL MED ORDER ONE (16:45)
[2017-04-18] MEDS ORDERED: COUGH DROP (SUGAR FREE) LOZ 24 LOZ/1 BOX PO PRN (16:45)
[2017-04-18] MEDS ORDERED: ACETAMINOPHEN 325 MG TAB PO PRN (17:00)
[2017-04-18] MEDS: PANTOprazole SOD 40 MG TAB PO SCH (21:12)
[2017-04-18 23:16] VITALS: BP 105/62; PULSE 58; TEMP 37; O2SAT 95
[2017-04-19 06:56] VITALS: BP 117/70; PULSE 55; TEMP 36.9; O2SAT 97
[2017-04-19] MEDS: PANTOprazole SOD 40 MG TAB PO SCH (08:45)
--- NOTE | 2017-04-19 08:56 | SURGERY PROGRESS NOTE ---
DATE: 04/19/2017 ATTENDING PHYSICIAN: Izzy Flaherty MD Luisa is doing well. She is walking and around, having no issues. She has had a bowel movement. Her abdomen is soft. The incision is healing well with some ecchymosis noted. Her last vitals showed a temperature of 36.9, pulse 55, respirations 19, blood pressure 117/70, O2 sats 97 on room air. She has taken no pain medicine except for occasional Tylenol. She did not want to take any Percocet. At this point, she is ready to discharge. Instructions have been given by the PA from [facility]. Instructions to follow up with them as outlined. GITA
[2017-04-19 09:31] VITALS: BP 117/70; PULSE 55; TEMP 36.9; O2SAT 97
--- NOTE | 2017-04-27 22:58 | DISCHARGE SUMMARY ---
ADMITTING DIAGNOSIS: Small bowel obstruction. DISCHARGE DIAGNOSIS: Same. OPERATION: Exploratory laparotomy, lysis of adhesions. SURGEON: Izzy Flaherty M.D. DETAILS OF DISCHARGE SUMMARY: This is a 46-year-old female, who presented to the ED with acute abdominal pain. The patient had a CT scan showing small bowel obstruction and patient was required to do a exploratory laparotomy. In the OR, we found the patient had a band that caused the small bowel obstruction. We released the adhesions and patient tolerated the procedure well. After the procedure, the patient was transferred to recovery room and later on, transferred to the surgical floor. The patient doing fine on the postop day #3 and the patient passed gas and passed stool. PHYSICAL EXAMINATION: VITAL SIGNS: The patient's temperature is 36.9, heart rate 55, respiratory rate 19, blood pressure 117/70, O2 saturation 97% on room air. GENERAL: The patient is alert, awake, oriented x3. No distress. NEUROLOGIC: Intact. CHEST: Bilateral lung sounds clear. HEART: Normal S1, S2. No murmur. ABDOMEN: Soft, no tenderness. The incision is healed well and no tenderness. Bowel sounds positive. EXTREMITIES: No edema. PLAN: The patient decided to go home. We discharged the patient home and the patient will follow up with me in 1 week. I also gave patient postop care instructions. The patient understands. GITA
== END 2017-04-19 10:00 | disposition home or self-care (01) | DRG 337 ==
LOC: C.EDB 06:22 → C.MSW 15:55 → ENRESERV 17:46
PROVIDERS: ADMIT Surgery; ATTEND Surgery
PROC: 0DN80ZZ Release Small Intestine, Open Approach (ICD-10-PCS; principal; 2017-04-16 11:15)
DX: K56.5 Intestinal adhesions [bands] with obstruction (postinfection) (principal); R60.0 Localized edema